=== PATIENT | female | born 1985 | race African-American/Black ===

== ENCOUNTER 2023-02-14 14:08 | Emergency (ER) | payer SELFPAY ==
[2023-02-14 14:22] VITALS: BP 116/67; PULSE 72; RESP 16; TEMP 36.8; O2SAT 99; BMI 30.2
--- NOTE | 2023-02-14 14:28 | DI.RAD.S_ITS ---
PROCEDURE: XR CHEST 1V INDICATIONS: chest pain TECHNIQUE: One view of the chest was acquired. COMPARISON: None. FINDINGS: Surgical changes and devices: None. Lungs and pleura: Lungs are clear. No pleural effusions or pneumothorax. Mediastinum: Mediastinal contours appear normal. Heart size is normal. Bones and chest wall: No suspicious bony lesions. Overlying soft tissues appear unremarkable. IMPRESSION: No acute cardiopulmonary findings. Dictated by: Carissa Mariano M.D. on 02/14/2023 at 15:14 Approved by: Carissa Mariano M.D. on 02/14/2023 at 15:14
[2023-02-14 14:57] LABS: Add Manual Diff / Slide Review NO; Basophils Absolute Auto 100 /uL (0-100); Basophils Percent Auto 0.9 % (0-2); Eosinophils Absolute Auto 100 /uL (0-450); Eosinophils Percent Auto 1.9 % (2-4); Hematocrit 39.7 % (36-46); Hemoglobin 13.3 g/dL (12.0-16.0); Lymphocytes Absolute Auto 2800 /uL (1100-4500); Mean Corpuscular HGB Conc 33.3 % (30-36); Mean Corpuscular Hemoglobin 26.5 PG (26-34); Mean Corpuscular Volume 79.5 fL (80-100); Monocytes Absolute Auto 500 /uL (0-900); Monocytes Percent Auto 7.1 % (3-14); Neutrophils Absolute Auto 3500 /uL (1500-7000); Neutrophils Percent Auto 50.1 % (50-75); Platelet Count 255 X10^3/uL (150-400); White Blood Cell Count 6.9 X10^3/uL (4.5-11.0)
[2023-02-14 15:08] LABS: INR 1.1 (0.9-1.3)
[2023-02-14 15:11] LABS: PTT Partial Thromboplastin Tim 34 SECONDS (26-36)
[2023-02-14 15:20] LABS: Alanine Aminotransferase 15 IU/L (<35); Albumin 4.3 g/dL (3.5-5.0); Albumin Globulin Ratio 1.2 (1.0-2.8); Alkaline Phosphatase 55 U/L (38-126); Aspartate Aminotransferase 21 IU/L (14-36); BUN Creatinine Ratio 20.6 (6-22); Bilirubin Total 0.2 mg/dL (0.2-1.3); Blood Urea Nitrogen 13 mg/dL (7-17); Calcium 8.8 mg/dL (8.4-10.2); Carbon Dioxide 28 mmol/L (22-32); Chloride 103 mmol/L (98-107); Creatine Kinase 93 U/L (30-135); Estimated Glomerular Filt Rate > 60 mL/min (>60); Globulin 3.6 g/dL (1.7-4.1); Glucose 91 mg/dL (70-100); HEMOLYSIS < 15 (0-50); Lipase 58 U/L (23-300); Magnesium 1.8 mg/dL (1.6-2.3); Potassium 3.5 mmol/L (3.4-5.1); Sodium 137 mmol/L (137-145); Total Protein 7.9 g/dL (6.3-8.2)
[2023-02-14 15:48] LABS: Troponin I < 0.012 ng/mL (0.01-0.034)
[2023-02-14 16:01] LABS: COVID19 -Nasal RAPID Negative (Negative)
[2023-02-14 19:23] VITALS: BP 115/77; PULSE 69; O2SAT 100
--- NOTE | 2023-02-14 19:24 | ED_ITS ---
HPI - Chest Pain <Akua Hughes PA-C - Last Filed: 02/14/23 19:29> General Chief Complaint: Chest Pain Stated Complaint: chest pain T-4 Time Seen by Provider: 02/14/23 16:43 Source: patient Mode of arrival: Ambulatory Limitations: no limitations History of Present Illness HPI narrative: 37-year-old female with a history of acid reflux presents to the ED with 5 days of substernal chest pain. Patient states that it is intermittent. Pain is not exacerbated by inspiration or expiration. Pain does not radiate. Patient states she thinks that the pain started after she had large amounts of caffeine in the several days preceding her symptoms. Patient states she has had this type of pain intermittently over the last 2 years. Patient has not sought help for it until now. Patient denies fever, chills, shortness of breath, cough, nausea, vomiting, abdominal pain, dysuria, lightheadedness, dizziness, syncope. No family history of early cardiac deaths. Related Data Allergies Allergy/AdvReac Type Severity Reaction Status Date / Time No Known Drug Allergies Allergy Verified 02/14/23 14:22 Review of Systems <Akua Hughes PA-C - Last Filed: 02/14/23 19:29> Review of Systems ROS Unobtainable: All systems reviewed & are unremarkable except as noted in HPI and below Constitutional Constitutional: Denies chills, Denies fatigue, Denies fever(s), Denies frequent falls, Denies lethargy and Denies weakness Eyes Eyes: Denies change in vision, Denies eye discharge, Denies irritation and Denies loss of vision ENT Ears, Nose, Mouth, and Throat: Denies change in voice, Denies dizziness, Denies neck pain, Denies sore throat and Denies throat swelling Cardiovascular Cardiovascular: Reports chest pain, Denies irregular heart rhythm, Denies lightheadedness, Denies palpitations, Denies dyspnea, Denies dyspnea on exertion and Denies orthopnea Respiratory Respiratory: Denies cough, Denies dyspnea, Denies dyspnea on exertion and Denies wheezing Gastrointestinal Gastrointestinal: Denies abdominal pain, Denies change in bowel habits, Denies diarrhea, Denies nausea and Denies vomiting Genitourinary Genitourinary: Denies hematuria, Denies flank pain, Denies urinary incontinence and Denies urinary urgency Musculoskeletal Musculoskeletal: Denies back pain, Denies muscle weakness, Denies neck pain, Denies numbness and Denies tingling Integumentary/Breasts Skin/Breast: Denies pruritus, Denies erythema, Denies rash and Denies wounds Neurologic Neurologic: Denies behavioral changes, Denies confusion, Denies dizziness, Denies frequent falls, Denies loss of vision, Denies numbness, Denies tingling and Denies weakness Psychiatric Psychiatric: Denies anxiety, Denies behavioral changes, Denies confusion, Denies depression, Denies homicidal ideation and Denies suicidal ideation Endocrine Endocrine: Denies fatigue, Denies flushing and Denies palpitations Hematologic/Lymphatic Hematologic/Lymphatic: Denies easy bruising Allergic/Immunologic Allergic/Immunologic: Denies urticaria, Denies throat swelling and Denies wheezing Patient History <Akua Hughes PA-C - Last Filed: 02/14/23 19:29> Social History Smoking Status: Never smoker Smoking Status: Never smoker alcohol intake frequency: a few times a week Substance Use Type: marijuana Exam <Akua Hughes PA-C - Last Filed: 02/14/23 19:29> Narrative Exam Narrative: Const General:?cooperative, healthy appearing and comfortable [facility] Head:?normal to inspection Ears:?hearing grossly normal bilaterally Nose:?external nose normal Face and sinus:?normal facial exam and sinuses nontender Mouth:?oral mucosae normal Throat:?posterior oropharynx normal Eyes General:?appearance normal, both eyes and all related structures Neck Neck:?normal visual inspection and no lymphadenopathy noted Resp Effort & Inspection:?normal respiratory effort Auscultation:?clear to auscultation bilaterally Cardio Rate:?regular rate Rhythm:?regular rhythm GI Abdomen is soft, nondistended, nontender to palpation. Neuro General:?patient alert, patient awake and patient oriented x3 Initial Vital Signs Initial Vital Signs: Vital Signs Temperature 98.3 F 02/14/23 14:22 Pulse Rate 72 02/14/23 14:22 Respiratory Rate 16 02/14/23 14:22 Blood Pressure 116/67 02/14/23 14:22 Pulse Oximetry 99 02/14/23 14:22 Oxygen Delivery Method Room Air 02/14/23 14:22 <Ryan Leija MD - Last Filed: 03/04/23 22:11> Initial Vital Signs Initial Vital Signs: Vital Signs Temperature 98.3 F 02/14/23 14:22 Pulse Rate 72 02/14/23 14:22 Respiratory Rate 16 02/14/23 14:22 Blood Pressure 116/67 02/14/23 14:22 Pulse Oximetry 99 02/14/23 14:22 Oxygen Delivery Method Room Air 02/14/23 14:22 Course <Akua Hughes PA-C - Last Filed: 02/14/23 19:29> Orders Ordered: Discontinued Medications Aspirin (Aspirin 81 Mg Chew Tab) 324 mg PO NOW ONE Stop: 02/14/23 14:29 Vital Signs Vital signs: Vital Signs - 8 hr 02/14/23 14:22 Temperature 98.3 F Pulse Rate 72 Respiratory Rate 16 Blood Pressure 116/67 Pulse Oximetry 99 Oxygen Delivery Method Room Air <Ryan Leija MD - Last Filed: 03/04/23 22:11> Orders Ordered: Discontinued Medications Aspirin (Aspirin 81 Mg Chew Tab) 324 mg PO NOW ONE Stop: 02/14/23 14:29 Vital Signs Vital signs: Vital Signs - 8 hr 02/14/23 14:22 Temperature 98.3 F Pulse Rate 72 Respiratory Rate 16 Blood Pressure 116/67 Pulse Oximetry 99 Oxygen Delivery Method Room Air MDM - Chest Pain <Akua Hughes PA-C - Last Filed: 02/14/23 19:29> Lab Data 02/14/23 14:40 02/14/23 14:40 Labs: Lab Results 02/14/23 02/14/23 02/14/23 Range/Units 14:30 14:40 14:40 WBC 6.9 (4.5-11.0) X10^3/uL RBC 5.00 (4.0-5.2) X10^6/uL Hgb 13.3 (12.0-16.0) g/dL Hct 39.7 (36-46) % MCV 79.5 L (80-100) fL MCH 26.5 (26-34) PG MCHC 33.3 (30-36) % RDW 13.0 (11.6-14.8) % Plt Count 255 (150-400) X10^3/uL Neut % (Auto) 50.1 (50-75) % Lymph % (Auto) 40.0 (25-40) % [place] % (Auto) 7.1 (3-14) % Eos % (Auto) 1.9 L (2-4) % Baso % (Auto) 0.9 (0-2) % Neut # (Auto) 3500 (9048-8085) /uL Lymph # (Auto) 2800 (1890-5824) /uL [place] # (Auto) 500 (0-900) /uL Eos # (Auto) 100 (0-450) /uL Baso # (Auto) 100 (0-100) /uL PT 13.0 H (10.1-12.7) SECONDS INR 1.1 (0.9-1.3) APTT 34 (26-36) SECONDS Sodium (137-145) mmol/L Potassium (3.4-5.1) mmol/L Chloride (98-107) mmol/L Carbon Dioxide (22-32) mmol/L BUN (7-17) mg/dL Creatinine (0.52-1.04) mg/dL Estimated GFR (>60) mL/min BUN/Creatinine Ratio (6-22) Glucose (70-100) mg/dL Calcium (8.4-10.2) mg/dL Magnesium (1.6-2.3) mg/dL Total Bilirubin (0.2-1.3) mg/dL AST (14-36) IU/L ALT (<35) IU/L Alkaline Phosphatase (38-126) U/L Total Creatine Kinase (30-135) U/L CK-MB (CK-2) CK-MB (CK-2) Rel Index Troponin I (0.01-0.034) ng/mL Total Protein (6.3-8.2) g/dL Albumin (3.5-5.0) g/dL Globulin (1.7-4.1) g/dL Albumin/Globulin Ratio (1.0-2.8) Lipase (23-300) U/L SARS-CoV-2 (PCR) Negative (Negative) 02/14/23 Range/Units 14:40 WBC (4.5-11.0) X10^3/uL RBC (4.0-5.2) X10^6/uL Hgb (12.0-16.0) g/dL Hct (36-46) % MCV (80-100) fL MCH (26-34) PG MCHC (30-36) % RDW (11.6-14.8) % Plt Count (150-400) X10^3/uL Neut % (Auto) (50-75) % Lymph % (Auto) (25-40) % [place] % (Auto) (3-14) % Eos % (Auto) (2-4) % Baso % (Auto) (0-2) % Neut # (Auto) (6839-3289) /uL Lymph # (Auto) (9303-1051) /uL [place] # (Auto) (0-900) /uL Eos # (Auto) (0-450) /uL Baso # (Auto) (0-100) /uL PT (10.1-12.7) SECONDS INR (0.9-1.3) APTT (26-36) SECONDS Sodium 137 (137-145) mmol/L Potassium 3.5 (3.4-5.1) mmol/L Chloride 103 (98-107) mmol/L Carbon Dioxide 28 (22-32) mmol/L BUN 13 (7-17) mg/dL Creatinine 0.63 (0.52-1.04) mg/dL Estimated GFR > 60 (>60) mL/min BUN/Creatinine Ratio 20.6 (6-22) Glucose 91 (70-100) mg/dL Calcium 8.8 (8.4-10.2) mg/dL Magnesium 1.8 (1.6-2.3) mg/dL Total Bilirubin 0.2 (0.2-1.3) mg/dL AST 21 (14-36) IU/L ALT 15 (<35) IU/L Alkaline Phosphatase 55 (38-126) U/L Total Creatine Kinase 93 (30-135) U/L CK-MB (CK-2) TNP CK-MB (CK-2) Rel Index TNP Troponin I < 0.012 (0.01-0.034) ng/mL Total Protein 7.9 (6.3-8.2) g/dL Albumin 4.3 (3.5-5.0) g/dL Globulin 3.6 (1.7-4.1) g/dL Albumin/Globulin Ratio 1.2 (1.0-2.8) Lipase 58 (23-300) U/L SARS-CoV-2 (PCR) (Negative) MDM Narrative Medical decision making narrative: 37-year-old female with a history of acid reflux presents to the ED with 5 days of substernal chest pain. Concern for ACS versus acid reflux versus musculoskeletal sprain/strain versus other. Will obtain chest x-ray, EKG, labs, troponin. Will reassess. EKG is normal sinus rhythm with no acute ST-T changes. Chest x-ray, labs, troponin all within normal limits. Patient's symptoms likely due to acid reflux. Recommend Pepcid AC twice daily for the next 2-4 weeks. Recommend PCP follow-up. ED return precautions discussed with patient. Patient verbalized understanding. Medical records reviewed: Yes <Ryan Leija MD - Last Filed: 03/04/23 22:11> Lab Data Labs: Lab Results 02/14/23 02/14/23 02/14/23 Range/Units 14:30 14:40 14:40 WBC 6.9 (4.5-11.0) X10^3/uL RBC 5.00 (4.0-5.2) X10^6/uL Hgb 13.3 (12.0-16.0) g/dL Hct 39.7 (36-46) % MCV 79.5 L (80-100) fL MCH 26.5 (26-34) PG MCHC 33.3 (30-36) % RDW 13.0 (11.6-14.8) % Plt Count 255 (150-400) X10^3/uL Neut % (Auto) 50.1 (50-75) % Lymph % (Auto) 40.0 (25-40) % [place] % (Auto) 7.1 (3-14) % Eos % (Auto) 1.9 L (2-4) % Baso % (Auto) 0.9 (0-2) % Neut # (Auto) 3500 (3008-8430) /uL Lymph # (Auto) 2800 (1267-9773) /uL [place] # (Auto) 500 (0-900) /uL Eos # (Auto) 100 (0-450) /uL Baso # (Auto) 100 (0-100) /uL PT 13.0 H (10.1-12.7) SECONDS INR 1.1 (0.9-1.3) APTT 34 (26-36) SECONDS Sodium (137-145) mmol/L Potassium (3.4-5.1) mmol/L Chloride (98-107) mmol/L Carbon Dioxide (22-32) mmol/L BUN (7-17) mg/dL Creatinine (0.52-1.04) mg/dL Estimated GFR (>60) mL/min BUN/Creatinine Ratio (6-22) Glucose (70-100) mg/dL Calcium (8.4-10.2) mg/dL Magnesium (1.6-2.3) mg/dL Total Bilirubin (0.2-1.3) mg/dL AST (14-36) IU/L ALT (<35) IU/L Alkaline Phosphatase (38-126) U/L Total Creatine Kinase (30-135) U/L CK-MB (CK-2) CK-MB (CK-2) Rel Index Troponin I (0.01-0.034) ng/mL Total Protein (6.3-8.2) g/dL Albumin (3.5-5.0) g/dL Globulin (1.7-4.1) g/dL Albumin/Globulin Ratio (1.0-2.8) Lipase (23-300) U/L SARS-CoV-2 (PCR) Negative (Negative) 02/14/23 Range/Units 14:40 WBC (4.5-11.0) X10^3/uL RBC (4.0-5.2) X10^6/uL Hgb (12.0-16.0) g/dL Hct (36-46) % MCV (80-100) fL MCH (26-34) PG MCHC (30-36) % RDW (11.6-14.8) % Plt Count (150-400) X10^3/uL Neut % (Auto) (50-75) % Lymph % (Auto) (25-40) % [place] % (Auto) (3-14) % Eos % (Auto) (2-4) % Baso % (Auto) (0-2) % Neut # (Auto) (1475-0668) /uL Lymph # (Auto) (6848-5513) /uL [place] # (Auto) (0-900) /uL Eos # (Auto) (0-450) /uL Baso # (Auto) (0-100) /uL PT (10.1-12.7) SECONDS INR (0.9-1.3) APTT (26-36) SECONDS Sodium 137 (137-145) mmol/L Potassium 3.5 (3.4-5.1) mmol/L Chloride 103 (98-107) mmol/L Carbon Dioxide 28 (22-32) mmol/L BUN 13 (7-17) mg/dL Creatinine 0.63 (0.52-1.04) mg/dL Estimated GFR > 60 (>60) mL/min BUN/Creatinine Ratio 20.6 (6-22) Glucose 91 (70-100) mg/dL Calcium 8.8 (8.4-10.2) mg/dL Magnesium 1.8 (1.6-2.3) mg/dL Total Bilirubin 0.2 (0.2-1.3) mg/dL AST 21 (14-36) IU/L ALT 15 (<35) IU/L Alkaline Phosphatase 55 (38-126) U/L Total Creatine Kinase 93 (30-135) U/L CK-MB (CK-2) TNP CK-MB (CK-2) Rel Index TNP Troponin I < 0.012 (0.01-0.034) ng/mL Total Protein 7.9 (6.3-8.2) g/dL Albumin 4.3 (3.5-5.0) g/dL Globulin 3.6 (1.7-4.1) g/dL Albumin/Globulin Ratio 1.2 (1.0-2.8) Lipase 58 (23-300) U/L SARS-CoV-2 (PCR) (Negative) Discharge Plan Departure Patient Disposition: Home Clinical Impression: Atypical chest pain Instructions: DI for Atypical Chest Pain Activity Restrictions/Additional Instructions: You were evaluated in the ED today for chest pain. Your chest x-ray, EKG, labs were all normal. It appears that your symptoms may be caused due to acid reflux. You may take Pepcid AC twice a day daily. You can take it a 1/2 hour before breakfast and a 1/2 hour before dinner. You may take Pepcid for 2-4 weeks. You will also benefit by eating smaller meals, staying upright for 2-3 hours after meals, avoiding or limiting caffeine and greasy or acidic foods. Please follow-up with your PCP as soon as possible. Return to the ED if you have worsening chest pain, shortness of breath. Referrals: Miscellaneous,[facility] [Primary Care Provider] - Stand Alone Forms: Patient Portal/API <Ryan Leija MD - Last Filed: 03/04/23 22:11> Cosign ED Attending Kikeature Attestation: I was immediately available in the department for consultation. This documentation has been reviewed and I agree with assessment and plan. Supervised by Ryan Leija MD
== END 2023-02-14 19:21 | disposition home or self-care (01) ==
PROVIDERS: Emergency Medicine; Emergency Provider Student in an Organized Health Care Education/Training Program
DX: R07.89 Other chest pain (principal); Z20.822 Contact with and (suspected) exposure to COVID-19
CPT/HCPCS: 36415; 71045; 80053; 82550; 83690; 83735; 84484; 85025; 85610; 85730; 87635; 93005; 93010; 99283; 99284; C9803